=== PATIENT | male | born 1960 | race Caucasian/White ===

== ENCOUNTER 2022-03-10 20:57 | Outpatient (REF) | payer OTHER, SELFPAY ==
[2022-03-10 21:02] LABS: ESR 18 mm/hr (0-20)
[2022-03-10 21:16] LABS: Calculated LDL 151 mg/dL (<100); Cholesterol 247 mg/dL (<200); HDL Cholesterol 66 mg/dL (40-60); Triglyceride 152 mg/dL (<150)
[2022-03-10 21:19] LABS: Hemoglobin A1C 5.6 % (<5.7)
[2022-03-10 21:30] LABS: Vitamin D 25 Total 25.3 ng/mL (30-100)
[2022-03-12 10:42] LABS: HIV-1/2 Ag & Ab Screen Negative (Negative)
[2022-03-12 10:48] LABS: Hepatitis C Ab w Rflx HCV PCR Negative (Negative)
== END 2022-03-10 20:58 | disposition home or self-care (01) ==
LOC: NCHCN 20:57
PROVIDERS: Visit Provider Family Medicine
DX: Z00.00 Encounter for general adult medical examination without abnormal findings (principal); R51.9 Headache, unspecified; E55.9 Vitamin D deficiency, unspecified; Z13.220 Encounter for screening for lipoid disorders; Z11.59 Encounter for screening for other viral diseases; Z13.1 Encounter for screening for diabetes mellitus; Z11.4 Encounter for screening for human immunodeficiency virus [HIV]
CPT/HCPCS: 80061; 82306; 85652; 86803; 87389; 83036

== ENCOUNTER 2022-03-20 19:45 | Outpatient (REF) | payer OTHER, SELFPAY | END 2022-03-20 19:46 | disposition home or self-care (01) | LOC: NCHCN 19:45 | PROVIDERS: Visit Provider Family Medicine ==

== ENCOUNTER 2024-04-18 15:20 | Outpatient (REF) | payer MEDICARE, SELFPAY ==
[2024-04-18 21:21] LABS: ALT 29 U/L (16-63); AST 21 U/L (15-37); Alkaline Phosphatase 66 U/L (46-116); Anion Gap 9.6 mmol/L (3-11); BUN 17 mg/dL (7-18); Bilirubin, Total 0.6 mg/dL (0.2-1.0); CO2 26.4 mmol/L (21.0-32.0); CREATININE 0.9 mg/dL (0.70-1.30); Calcium 8.9 mg/dL (8.5-10.1); Calculated LDL 139 mg/dL (<100); Chloride 104 mmol/L (98-107); Cholesterol 233 mg/dL (<200); Estimated GFR 94.78 (mL/min/1.73m2); Glucose 92 mg/dL (74-106); HDL Cholesterol 74 mg/dL (40-60); Potassium 4.2 mmol/L (3.5-5.1); Sodium 140 mmol/L (136-145); Total Protein 7.1 g/dL (6.4-8.2); Triglyceride 104 mg/dL (<150)
[2024-04-19 18:24] LABS: PSA, Screening 1.7 ng/mL (<=4.5)
== END 2024-04-18 15:21 | disposition home or self-care (01) ==
LOC: NCHCN 15:20
PROVIDERS: PCP Family Medicine; Visit Provider Family Medicine
DX: E78.5 Hyperlipidemia, unspecified (principal); Z12.5 Encounter for screening for malignant neoplasm of prostate
CPT/HCPCS: 80053; 80061; 84153

== ENCOUNTER 2025-02-20 21:58 | Outpatient (REF) | payer MEDICARE, SELFPAY | END 2025-02-20 21:59 | disposition home or self-care (01) | LOC: NCHCN 21:58 | PROVIDERS: PCP Family Medicine; Visit Provider Family Medicine | DX: J02.9 Acute pharyngitis, unspecified (principal) | CPT/HCPCS: 87070 ==

== ENCOUNTER 2025-08-10 15:07 | Outpatient (REF) | payer MEDICARE, SELFPAY ==
[2025-08-10 17:31] LABS: Calculated LDL 85 mg/dL (<100); Cholesterol 178 mg/dL (<200); HDL Cholesterol 65 mg/dL (>or=40); Triglyceride 142 mg/dL (<150)
== END 2025-08-10 15:08 | disposition home or self-care (01) ==
LOC: NCHCN 15:07
PROVIDERS: PCP Family Medicine; Visit Provider Family Medicine
DX: I25.2 Old myocardial infarction (principal)
CPT/HCPCS: 80061